=== PATIENT | female | born 1960 | race Two or more races ===

== ENCOUNTER 2016-08-20 09:34 | Day surgery (SDC) | payer MEDICARE ==
[2016-08-20] MEDS ORDERED: GENTAMICIN SULFATE 320 MG in SODIUM CHLORIDE 0.9% 100 ML IV PRN (10:00)
[2016-08-20] MEDS ORDERED: CEFAZOLIN SODIUM 2 GRAM DUPLEX 50 ML IV PRN (10:00)
[2016-08-20] MEDS ORDERED: SODIUM CHLORIDE 0.9% 1,000 ML ONE (10:15)
[2016-08-20] MEDS ORDERED: CEFAZOLIN SODIUM 2 GRAM PREMIX 100 ML IV ONE (10:16)
[2016-08-20] MEDS ORDERED: IV START KIT ONE (10:16)
[2016-08-20] MEDS ORDERED: PROPOFOL 20 ML IV ONE (10:44)
[2016-08-20] MEDS ORDERED: SODIUM CHLORIDE 0.9% 50 ML ONE (10:44)
[2016-08-20] MEDS ORDERED: METRONIDAZOLE 20 APPLIC/70 G TUBE ONE (10:44)
[2016-08-20] MEDS ORDERED: ESTROGENS,CONJUGATED CREAM 30 G/TUBE VG ONE (10:44)
[2016-08-20] MEDS ORDERED: MIDAZOLAM HCL 1 MG/ML 2ML VIAL ONE (10:44)
[2016-08-20] MEDS ORDERED: LIDOCAINE 0.5%/EPI 1:200,000 (MULTIDOSE) 50 ML VIAL ONE (10:44)
[2016-08-20] MEDS ORDERED: BUPIVACAINE 0.5% (PRES FREE) 30 ML VIAL ONE (10:44)
[2016-08-20] MEDS ORDERED: FENTANYL 100 MCG/2 ML VIAL ONE (10:45)
[2016-08-20] MEDS ORDERED: SPINAL PROCEDURAL TRAY 1 EACH ONE (10:56)
[2016-08-20] MEDS ORDERED: OPIUM/BELLADONNA ALKALOIDS 1 EACH SUP PR ONE (10:59)
[2016-08-20] MEDS ORDERED: NEOMY SULF/POLYMYXIN B SULFATE 1 ML AMP IR ONE (10:59)
[2016-08-20] MEDS ORDERED: ONDANSETRON 4 MG/2ML 2 ML VIAL IV PRN ×2 (11:35→13:10)
[2016-08-20] MEDS ORDERED: MEPERIDINE 25 MG/ML SYRINGE IV PRN (11:35)
[2016-08-20] MEDS ORDERED: LABETALOL HCL 5 MG/ML 20ML VIAL IV PRN (11:35)
[2016-08-20] MEDS ORDERED: PROMETHAZINE HCL 25 MG/ML VIAL IM PRN (11:35)
[2016-08-20] MEDS ORDERED: HYDROMORPHONE HCL 1 MG/ML SYRINGE IV PRN (11:35)
[2016-08-20] MEDS ORDERED: FENTANYL 100 MCG/2 ML VIAL IV PRN (11:35)
[2016-08-20] MEDS ORDERED: NALOXONE HCL 0.4 MG/ML VIAL IV PRN (11:35)
[2016-08-20] MEDS ORDERED: HYDRALAZINE HCL 20 MG/1 ML VIAL IV PRN (11:35)
[2016-08-20] MEDS ORDERED: ATROPINE SULFATE 0.4 MG/1 ML VIAL IV PRN (11:35)
[2016-08-20] MEDS ORDERED: LACTATED RINGERS 1,000 ML IV SCH (11:45)
[2016-08-20] MEDS ORDERED: METHYLENE BLUE 1% 1ML VIAL ONE (12:00)
[2016-08-20] MEDS ORDERED: HYDROCODONE/ACETAMINOPHEN 5/325MG TABLET PO PRN (13:10)
[2016-08-20] MEDS ORDERED: MORPHINE SULFATE 2 MG/ML SYRINGE IV PRN (13:10)
[2016-08-20] MEDS ORDERED: ONDANSETRON 4 MG/2ML 2 ML VIAL ONE (13:38)
--- NOTE | 2016-08-20 14:07 | OP ---
[facility] [id number] DATE OF OPERATION: August 20, 2016 SURGEON: Quinten Obrien M.D. MANAGER INTEGRITY: Marilee Win ANESTHESIA: Spinal. PREOPERATIVE DIAGNOSES: 1. Cystocele grade 2 with dysfunctional voiding. 2. 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 POSTOPERATIVE DIAGNOSES: 1. Cystocele grade 2 with dysfunctional voiding. 2. 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 PROCEDURE: 1. CYSTOSCOPY. 2. TROCAR SUPRAPUBIC CYSTOSTOMY TUBE PLACEMENT WITH DRAINAGE. 3. ANTERIOR MESH CYSTOCELE REPAIR. 4. SUBURETHRAL SLING. SPECIMENS: None. INDICATIONS: Patient is a 55-year-old woman with a greater than six month history of daytime and nighttime incontinence. She has previously had a hysterectomy back in 2007 and a subsequent repair of a vesicovaginal fistula. She has increased urge symptoms causing frequency and nocturia and bulging sensation vaginally. On exam, there is a grade 2 cystocele and a slight increase in voiding pressure. Urethra hypermobility has been confirmed causing stress incontinence. She has elected surgical intervention. FINDINGS: Urethra appeared normal. Minimal squamous metaplasia of the trigone. The urethra is hypermobile. Bladder base is displaced downwards into the cystocele. Old scar behind her trigone is notable from her previous repair and intact. Ureteral orifices normally disposed. No focal bladder lesions. At the end of the case there were no materials intruding on the urethra or bladder aside from the suprapubic tube and urine was seen from both ureteral orifices. PROCEDURE: The patient was identified and brought to the operating room where spinal anesthetic was applied, and she was placed in the dorsal lithotomy position. The lower abdomen, genitalia and vagina were prepped and draped sterilely. Sites were marked 2 cm above the pubic brim in the midline and at the level of the clitoris in the groin folds on both sides. These were treated with 0.5% Marcaine and the suprapubic site opened with a stab incision. Next, cystoscopy was performed with a 17 [place] [employer] scope using water as an irrigant. Findings are reported above. We placed the patient in Trendelenburg position while we used the scope to overdistend the bladder. We then passed a Bard 12 [place] [employer] trocar suprapubic tube system to access the high anterior wall of the bladder under direct vision during expiratory phase. The trocar and stylet were removed, and the balloon was inflated and seated against the bladder wall. It was allowed to drain throughout the case and ultimately secured at the level of the skin with #2-0 nylon. Next, the cystoscope was withdrawn and a Nice catheter was placed to gravity drainage. A posterior weighted speculum was inserted followed by a [place] retractor for labial retraction. The subvesical tissues were treated centrally with 0.5% lidocaine containing epinephrine and then laterally and posteriorly with injectable saline. We opened an inverted C incision which was proximal to the bladder neck and elevated the anterior vaginal flap away from the bladder base, taking care to dissect carefully through the region of the scar tissue from her previous repair. We pushed tissues away from the pelvic sidewalls to get through the pelvic floor and pushed tissues medially away from the sacrospinous ligament. Next, a #2-0 Vicryl suture was preplaced on the high anterior vaginal midline. A Capio device was used to pre-place the posterior arms of an Uphold Lite graft in the sacrospinous ligaments on each side. These were pulled partially into position and the midline of the posterior edge of the graft secured to the preplaced #2-0 Vicryl suture. The graft was then pulled the rest of the way into its position and the anterior lip secured with #2-0 Vicryl sutures. The plastic sleeves on the graft were then removed. The wound was irrigated with genitourinary irrigant containing some Betadine paint and the vaginal wound closed with a running #2-0 Vicryl suture. We then turned our attention suburethrally and anesthetized the midline with 0.5% lidocaine containing epinephrine and then laterally on each side with injectable saline. A transverse incision was opened and a bed created for the sling and tunnels dissected out to the pubis on each side. We then opened the previously anesthetized groin sites with stab incisions and used Halo type carriers to come around the medial aspect of the obturator foramen and deliver the tips into the dissected vaginal tunnels. The carriers were then used to draw a polypropylene mesh graft from the vagina aspect out to the groin folds on each side. Tensioning was completed with a #20 [place] [employer] sound as a suburethral spacer, and the plastic sleeves were then removed. Next, we irrigated with genitourinary irrigant containing some Betadine paint and closed the suburethral wound with a running #2-0 Vicryl suture. Cystoscopy was then performed after removing all retractors and the Nice catheter. Blue colored urine was seen from each orifice having given the patient intravenous methylene blue. No interruption of the urethra or bladder base was identified. Suprapubic tube remained in good position. The cystoscope was then withdrawn and the vagina packed with gauze containing Flagyl gel after applying a small dab of estrogen cream to the suture line. The groin wounds were closed with Dermabond underneath Benzoin and SteriStrips. Suprapubic tube was secured with #2-0 nylon and left to gravity drainage. Nancie Pad was applied. Estimated blood loss 50 to 75 mL. Sponge and needle counts were correct. No early complications. Patient tolerated the procedure well and was taken in stable condition to the post anesthesia room. cc: Quinten Obrien M.D. Minerva Weaver M.D.
[2016-08-20] MEDS ORDERED: HYDROCODONE/ACETAMINOPHEN 5/325MG TABLET ONE (16:46)
== END 2016-08-20 18:00 ==
LOC: SDC 09:34
PROVIDERS: ATTEND Urology
PROC: 0JUC0JZ Supplement of Pelvic Region Subcutaneous Tissue and Fascia with Synthetic Substitute, Open Approach (ICD-10-PCS; principal; 2016-08-20)
PROC: 0TSD0ZZ Reposition Urethra, Open Approach (ICD-10-PCS; 2016-08-20)
DX: N81.10 Cystocele, unspecified (principal); N39.3 Stress incontinence (female) (male); N36.41 Hypermobility of urethra; E78.00 Pure hypercholesterolemia, unspecified; K21.9 Gastro-esophageal reflux disease without esophagitis; E11.9 Type 2 diabetes mellitus without complications; M06.9 Rheumatoid arthritis, unspecified; Z85.3 Personal history of malignant neoplasm of breast; Z90.10 Acquired absence of unspecified breast and nipple; Z90.710 Acquired absence of both cervix and uterus